=== PATIENT | male | born 1990 | race American Indian/Alaskan Native ===

== ENCOUNTER 2018-03-21 18:53 | Emergency (ER) | payer SELFPAY ==
[2018-03-21 19:26] VITALS: O2SAT 98
[2018-03-21] MEDS ORDERED: Sodium Chloride 0.9% 1,000 ML IV STA (20:24)
[2018-03-21 20:42] LABS: BASO % 0.4 % (0.0-2.0); EOS % 0.4 % (0.0-4.0); LYMPH % 27.6 % (20.0-40.0); MEAN CELL VOLUME 101.7 fl (80.0-94.0); MEAN CORPUSCULAR HEMOGLOBIN 34.6 pg (27.0-31.0); MEAN PLATELET VOLUME 9.6 fl (7.2-11.7); MONO # 0.4 K/uL (0.0-0.8); MONO % 10.8 % (0.0-10.0); NEUT # 2.3 K/uL (1.8-7.0); NEUT % 60.8 % (50.0-75.0); NRBC % 0.4 % (0.0-0.0); RBC 3.75 Mil/uL (4.40-5.90); WHITE BLOOD COUNT 3.7 K/uL (4.8-10.8)
[2018-03-21 20:47] LABS: ALB/GLOB RATIO 1.5 (1.0-2.1); ALBUMIN 4.3 g/dL (3.5-5.0); ALT/SGPT 29 U/L (21-72); AST/SGOT 36 U/L (17-59); BLOOD UREA NITROGEN 19 mg/dl (9-20); CALCIUM 8.9 mg/dL (8.4-10.2); GFR NON-AFRICAN AMERICAN > 60
--- NOTE | 2018-03-21 21:10 | ED PDOC ---
History of Present Illness History of Present Illness: 27 y/o male with no significant PMHx presents to the ED for evaluation of flu-like symptoms, onset 5 days ago. Patient reports he has been resting at home and taking [id number] medications since onset. Patient states he tried going back to work today but felt too weak. Patient is unsure if he had developed a fever since onset. PMD: none provided HPI: Influenza Time Seen by Provider: 03/21/18 19:20 Chief Complaint: Dizziness/Lightheaded Chief Complaint (Provider): Dizziness/Lightheaded History Per: Patient Exam Limitations: no limitations Onset/Duration Of Symptoms: Days (x5) Past Medical History Reviewed: Historical Data, Nursing Documentation, Vital Signs Vital Signs: Last Vital Signs Temp 98.2 F 03/21/18 19:24 Pulse 61 03/21/18 19:24 Resp 18 03/21/18 19:24 BP 122/67 03/21/18 19:24 Pulse Ox 98 03/21/18 19:24 - Medical History PMH: No Chronic Diseases - Surgical History Surgical History: No Surg Hx - Family History Family History: States: Unknown Family Hx - Home Medications Home Medications: Ambulatory Orders Medication Instructions Recorded Benzonatate [Tessalon Perle] 100 mg PO TID PRN #15 capsule 03/21/18 - Allergies Allergies/Adverse Reactions: Allergies Allergy/AdvReac Type Severity Reaction Status Date / Time No Known Allergies Allergy Verified 03/21/18 19:15 Review of Systems ROS Statement: Except As Marked, All Systems Reviewed And Found Negative Constitutional: Positive for: Fever (possible), Weakness, Other (myalgia) ENT: Positive for: Throat Pain Respiratory: Positive for: Cough Physical Exam - Reviewed Nursing Documentation Reviewed: Yes Vital Signs Reviewed: Yes - Physical Exam Appears: Positive for: No Acute Distress Head Exam: Positive for: ATRAUMATIC, NORMOCEPHALIC Skin: Positive for: Normal Color, Warm, Dry Eye Exam: Positive for: Normal appearance, EOMI, PERRL ENT: Positive for: Other (Mucous Membranes are Dry) Neck: Positive for: Normal, Painless ROM Cardiovascular/Chest: Positive for: Regular Rate, Rhythm. Negative for: Murmur Respiratory: Positive for: Normal Breath Sounds. Negative for: Respiratory Distress Gastrointestinal/Abdominal: Positive for: Normal Exam, Soft. Negative for: Tenderness Extremity: Positive for: Normal ROM. Negative for: Deformity Neurologic/Psych: Positive for: Alert, Oriented (x3). Negative for: Motor /Sensory Deficits Medical Decision Making Medical Decision Making: Time: 2023 Impression: 27 y/o male with flu-like symptoms. Plan: -- CMP -- ED Urine Dipstick -- CBC with Differentials -- Glucose, POC -- Sodium Chloride IV 1000 mls/hr -- Heplock Insertion -- Influenza A B -- Urinalysis Time: 2206 -- Labs reviewed and demonstrate no clinically significant abnormalities. Patient reports an improvement in symptoms. Patient is stable for discharge with a diagnosis of dehydration and viral illness. Scribe Attestation: Documented by Amber Azevedo, acting as a scribe for Naveen Tim MD. Provider Scribe Attestation: All medical record entries made by the Scribe were at my direction and personally dictated by me. I have reviewed the chart and agree that the record accurately reflects my personal performance of the history, physical exam, medical decision making, and the department course for this patient. I have also personally directed, reviewed, and agree with the discharge instructions and disposition. - Laboratory Results Result Diagrams: 03/21/18 20:34 03/21/18 20:34 - ECG O2 Sat by Pulse Oximetry: 98 (RA) Pulse Ox Interpretation: Normal Disposition - Clinical Impression Clinical Impression: Influenza-like illness, Dehydration - Patient ED Disposition Is Patient to be Admitted: No Counseled Patient/Family Regarding: Studies Performed, Diagnosis, Need For Followup, Rx Given - Disposition Referrals: [facility] [Outside] Disposition: Routine/Home Disposition Time: 22:07 Condition: STABLE Prescriptions: Benzonatate [Tessalon Perle] 100 mg PO TID PRN #15 capsule PRN Reason: Cough Instructions: Dehydration, Adult (DC), Viral Syndrome (DC) Forms: [employer] ([place]), [facility] ED School/Work Excuse
[2018-03-22 04:36] VITALS: BP 121/64; PULSE 88; RESP 16; TEMP 98.1
== END 2018-03-21 22:15 | disposition home or self-care (01) ==
LOC: H.ER 18:53
DX: E86.0 Dehydration (principal); B34.9 Viral infection, unspecified
CPT/HCPCS: 80053; 82948; 85025; 87804; 99285; J7030